=== PATIENT | male | born 1945 | race Two or more races ===

== ENCOUNTER 2023-09-07 15:21 | Inpatient (IN) | payer MEDICARE, OTHER ==
[~2023-09-07] VITALS: Ht 167.6 cm; Wt 98.1 kg
[2023-09-07] MEDS ORDERED: VANCOMYCIN IV 200 ML ONE (16:03)
[2023-09-07] MEDS ORDERED: CEFTRIAXONE /D5W 50ML IVPB **ER PYXIS IV ONE (16:03)
[2023-09-07] MEDS ORDERED: DEXAMETHASONE SOD PHOSPHATE 10 MG INJ ONE ×2 (16:04→16:07)
[2023-09-07] MEDS ORDERED: AZITHROMYCIN 250 MG TABLET ONE (16:04)
[2023-09-07 16:15] LABS: EOSINOPHILS # (AUTO) 0.1 K/uL (0.0-0.7); MEAN CORPUSCULAR VOLUME 77.1 fL (73.0-96.2); RED CELL DISTRIBUTION WIDTH 14.6 % (12.1-16.2)
[2023-09-07 16:22] LABS: BASOPHILS # (AUTO) 0.1 K/UL (0.0-0.2); BASOPHILS % (AUTO) 0.6 % (0.0-2.0); DIFFERENTIAL COMMENT 0; EOSINOPHILS % (AUTO) 0.6 % (0.0-7.0); HEMATOCRIT 38.7 % (36.7-47.1); HEMOGLOBIN 12.7 g/dL (12.5-16.3); LYMPHOCYTES # (AUTO) 2.4 K/uL (0.8-4.8); LYMPHOCYTES % (AUTO) 19.4 % (20.5-51.5); MEAN CORPUSCULAR HEMOGLOBIN 25.4 uug (23.8-33.4); MEAN CORPUSCULAR HGB CONC 33 g/dL (32.5-36.3); MONOCYTES # (AUTO) 1.3 K/uL (0.1-1.30); MONOCYTES % (AUTO) 10.3 % (0.0-11.0); NEUTROPHILS # (AUTO) 8.5 K/uL (1.8-8.9); NEUTROPHILS % (AUTO) 69.1 % (38.5-71.5); PLATELET COUNT (AUTO) 207 K/uL (152-348); RED BLOOD CELL COUNT(AUTO) 5.02 MIL/uL (4.06-5.63); WHITE BLOOD COUNT (AUTO) 12.3 K/uL (3.6-10.2)
[2023-09-07] MEDS: IV NORMAL SALINE 1000 ML BAG IV ONE (16:28)
[2023-09-07] MEDS: CEFTRIAXONE 1 G in IV DEXTROSE 5% 50 ML IV ONE (16:28)
[2023-09-07] MEDS: VANCOMYCIN IV 1,000 MG in IV DEXTROSE 5% 250 ML IV ONE (16:28)
[2023-09-07] MEDS: DEXAMETHASONE SOD PHOSPHATE 4 MG INJ IV ONE (16:28)
[2023-09-07] MEDS: AZITHROMYCIN 250 MG TABLET PO ONE (16:28)
[2023-09-07 16:30] LABS: CALCIUM 9.6 mg/dL (8.5-10.1); CARBON DIOXIDE 33 mmol/L (21-32); CHLORIDE 102 mmol/L (98-107); CREATININE 1.6 mg/dL (0.6-1.3); GLUCOSE 107 mg/dL (74-106); POTASSIUM 4.4 mmol/L (3.5-5.1); SODIUM SERUM 141 mmol/L (136-145); UREA NITROGEN, BLOOD 34 mg/dL (7-18)
[2023-09-07 16:43] LABS: ALANINE AMINOTRANSFERASE 22 U/L (16-63); ALBUMIN 2.8 g/dL (3.4-5.0); ALKALINE PHOSPHATASE 97 U/L (50-136); ASPARTATE AMINOTRANSFERASE 17 U/L (15-37); BILIRUBIN,DIRECT 0.1 mg/dL (0.0-0.2); BILIRUBIN,TOTAL 0.3 mg/dL (0.2-1.0); NT-PRO BNP 463 pg/mL (0-125); TOTAL PROTEIN, SERUM 7.1 g/dL (6.4-8.2)
[2023-09-07 17:19] LABS: SITE, VBG RIGHT BRACHIAL; VBG AaDO2 96.3 mmHg; VBG BASE EXCESS 3.1 mmol/L (-3-3); VBG HCO3 30.1 mmol/L (22-27); VBG MetHb 0.3 % (0.0-0.5); VBG O2HB 95.2 %; VBG PCO2 56.4 mmHg (41.0-54.0); VBG PH 7.345 (7.310-7.450); VBG PO2 90.3 mmHg (25.0-35.0); VBG TOTAL HEMOGLOBIN 13.4 G/dL (12.0-16.0)
[2023-09-07] MEDS ORDERED: FOLI1TAB27 PO (17:37)
[2023-09-07] MEDS ORDERED: CINA30TA2 PO (17:37)
[2023-09-07] MEDS ORDERED: ALLO100T PO (17:37)
[2023-09-07] MEDS ORDERED: ERGO500040 PO (17:37)
[2023-09-07] MEDS ORDERED: MULT-1119 PO (17:37)
[2023-09-07] MEDS ORDERED: TADA20TA31 PO (17:37)
[2023-09-07] MEDS ORDERED: MAGN200T5 PO (17:37)
[2023-09-07] MEDS ORDERED: AMIO100T4 PO (17:37)
[2023-09-07] MEDS ORDERED: LABE100T5 PO (17:37)
[2023-09-07] MEDS ORDERED: LANS30CA56 PO (17:37)
[2023-09-07] MEDS ORDERED: ESOM40CA PO (17:37)
[2023-09-07] MEDS ORDERED: MYCO250C PO (17:37)
[2023-09-07] MEDS ORDERED: TAMS-3 PO (17:37)
[2023-09-07] MEDS ORDERED: PRED1TAB PO (17:37)
[2023-09-07] MEDS ORDERED: ACET250T3 PO (17:37)
[2023-09-07] MEDS ORDERED: TACR1CAP2 PO (17:37)
[2023-09-07] MEDS ORDERED: SERT20OR6 PO (17:37)
[2023-09-07] MEDS ORDERED: CALC0.253 PO (17:37)
[2023-09-07] MEDS ORDERED: SERT25TA PO (17:39)
[2023-09-07 20:04] LABS: *BILIRUBIN,URIN NEGATIVE (NEGATIVE); *CLARITY,URINE CLEAR (CLEAR); *COLOR,URINE YELLOW (YELLOW); *KETONES,URINE NEGATIVE (NEGATIVE); *PROTEIN,URINE NEGATIVE (NEGATIVE); *UROBILINOGEN,URINE 0.2 E.U./dl (NORMAL); LEUKOCYTE ESTERASE ,URINE NEGATIVE (NEGATIVE); NITRITE, URINE NEGATIVE (NEGATIVE); PH,URINE 5.5 (5.0-8.0); UGLUCOSE NEGATIVE (NEGATIVE)
[2023-09-07 20:12] LABS: *BLOOD, URINE TRACE (NEGATIVE)
[2023-09-07 20:21] LABS: BACTERIA,URINE NONE SEEN /HPF (NONE SEEN); RBC,URINE 0-3 /HPF (0-3); SQUAMOUS EPITHELIAL CELL,UR NONE SEEN /HPF (NONE SEEN); WBC,URINE NONE SEEN /HPF (0-3)
[2023-09-07 21:55] VITALS: BP 135/62; TEMP 97.8; O2SAT 94
[2023-09-07] MEDS ORDERED: DEXTROSE 50% 50 ML DISP.SYRIN IV PRN (23:00)
[2023-09-07] MEDS ORDERED: MAGNESIUM HYDROXIDE 30 ML LIQUID UDC PO PRN (23:00)
[2023-09-07] MEDS ORDERED: IPRATROPIUM BROMIDE 0.5 MG/2.5 ML NEBU NEB PRN (23:00)
[2023-09-07] MEDS: MYCOPHENOLATE MOFETIL 250 MG CAPSULE PO SCH (23:00)
[2023-09-07] MEDS ORDERED: ONDANSETRON 4 MG/2 ML VIAL IV PRN (23:00)
[2023-09-07] MEDS ORDERED: REMEDY ESSENTIAL ZINC PASTE 113 GM TP PRN (23:00)
[2023-09-07] MEDS ORDERED: ALBUTEROL SULFATE 2.5 MG/ 0.5 ML NEBU NEB PRN (23:00)
[2023-09-07] MEDS ORDERED: ACETAMINOPHEN 325 MG TABLET PO PRN (23:00)
[2023-09-07] MEDS: INSULIN GLARGINE,HUM 300 UNITS/3 ML CARTRIDGE SQ SCH (23:22)
[2023-09-07] MEDS: IV NS 1000 ML 1,000 ML IV ONE (23:24)
[2023-09-08] VITALS (14 sets, daily range): BP systolic 126–150; BP diastolic 37–72; TEMP 97.8–98.3; O2SAT 92–100
[2023-09-08] MEDS: BLOOD SUGAR DIAGNOSTIC 1 EACH STRIP VI SCH (06:33)
[2023-09-08 06:48] LABS: HEMATOCRIT 34.7 % (36.7-47.1); HEMOGLOBIN 11.3 g/dL (12.5-16.3); LYMPHOCYTES # (AUTO) 0.5 K/uL (0.8-4.8); MEAN CORPUSCULAR HEMOGLOBIN 25.1 uug (23.8-33.4); MEAN CORPUSCULAR HGB CONC 33 g/dL (32.5-36.3); MONOCYTES # (AUTO) 0.3 K/uL (0.1-1.30); MONOCYTES % (AUTO) 4.3 % (0.0-11.0); NEUTROPHILS # (AUTO) 5.4 K/uL (1.8-8.9); NEUTROPHILS % (AUTO) 87.7 % (38.5-71.5); PLATELET COUNT (AUTO) 187 K/uL (152-348); RED BLOOD CELL COUNT(AUTO) 4.51 MIL/uL (4.06-5.63); RED CELL DISTRIBUTION WIDTH 14.6 % (12.1-16.2); WHITE BLOOD COUNT (AUTO) 6.2 K/uL (3.6-10.2)
[2023-09-08 06:59] LABS: DIFFERENTIAL COMMENT 1
[2023-09-08 07:02] LABS: CALCIUM 7.5 mg/dL (8.5-10.1); CARBON DIOXIDE 26 mmol/L (21-32); CHLORIDE 110 mmol/L (98-107); CHOLESTEROL 108 mg/dL (<200); CREATININE 1.3 mg/dL (0.6-1.3); GLUCOSE 152 mg/dL (74-106); HDL CHOLESTEROL 38 mg/dL (40-60); MAGNESIUM 1.5 mg/dL (1.8-2.4); PHOSPHOROUS 3.1 mg/dL (2.5-4.9); POTASSIUM 4.4 mmol/L (3.5-5.1); SODIUM SERUM 144 mmol/L (136-145); TRIGLYCERIDES 71 MG/DL (30-150); UREA NITROGEN, BLOOD 31 mg/dL (7-18)
[2023-09-08 07:17] LABS: THYROID STIMULATING HORMONE 0.101 mIU/mL (0.358-3.740)
[2023-09-08] MEDS: IPRATROPIUM BROMIDE 0.5 MG/2.5 ML NEBU NEB SCH (08:55)
[2023-09-08] MEDS: ALBUTEROL SULFATE 2.5 MG/ 0.5 ML NEBU NEB SCH (08:55)
[2023-09-08] MEDS ORDERED: TADALAFIL 20 MG PO SCH (09:00)
[2023-09-08] MEDS ORDERED: MAGNESIUM OXIDE 400 MG TABLET PO SCH ×2 (09:00)
[2023-09-08] MEDS ORDERED: predniSONE 5 MG TABLET PO SCH (09:00)
[2023-09-08] MEDS ORDERED: SERTRALINE HCL 50 MG TABLET PO SCH (09:00)
[2023-09-08] MEDS ORDERED: TACROLIMUS ANHYDROUS 0.5 MG CAPSULE PO SCH (09:00)
[2023-09-08] MEDS ORDERED: CINACALCET HCL 30 MG TABLET PO SCH (09:00)
[2023-09-08] MEDS ORDERED: predniSONE 1 MG TABLET PO SCH (09:00)
[2023-09-08] MEDS: ENOXAPARIN SODIUM 30 MG/0.3 ML DISP.SYRIN SQ SCH (09:00)
[2023-09-08] MEDS: MULTIVITAMINS,THERAPEUTIC TABLET PO SCH (09:37)
[2023-09-08] MEDS: LABETALOL HCL 100 MG TABLET PO SCH (09:37)
[2023-09-08] MEDS: FOLIC ACID 1 MG TABLET PO SCH (09:37)
[2023-09-08] MEDS: AMIODARONE HCL 200 MG TABLET PO SCH (09:37)
[2023-09-08] MEDS: MYCOPHENOLATE MOFETIL 250 MG CAPSULE PO SCH ×2 (10:25→20:16)
[2023-09-08] MEDS: PANTOPRAZOLE SODIUM 40 MG TABLET.DR PO SCH (10:25)
[2023-09-08] MEDS: predniSONE 5 MG TABLET PO SCH (10:25)
[2023-09-08] MEDS: TACROLIMUS ANHYDROUS 0.5 MG CAPSULE PO SCH ×2 (10:29→20:16)
[2023-09-08] MEDS: CALCITRIOL 0.25 MCG CAPSULE PO SCH (10:34)
[2023-09-08] MEDS: MAGNESIUM OXIDE 400 MG TABLET PO ONE (12:07)
[2023-09-08] MEDS: INSULIN REGULAR, HUMAN 300 UNIT/3 ML VIAL SQ PRN (12:08)
[2023-09-08] MEDS ORDERED: AZITHROMYCIN IV 500 MG in IV DEXTROSE 5% 250 ML IV SCH ×2 (15:00→21:00)
[2023-09-08] MEDS: DOXYCYCLINE HYCLATE IV 100 MG in IV DEXTROSE 5% 100 ML IV SCH (15:12)
[2023-09-08] MEDS: CEFTRIAXONE 1 G in IV DEXTROSE 5% 50 ML IV SCH (16:41)
[2023-09-08] MEDS: TAMSULOSIN HCL 0.4 MG CAP.SR.24H PO SCH (20:16)
[2023-09-08] MEDS: CINACALCET HCL 30 MG TABLET PO SCH (20:16)
[2023-09-08] MEDS: INSULIN GLARGINE,HUM 300 UNITS/3 ML CARTRIDGE SQ SCH (20:29)
[2023-09-08] MEDS ORDERED: CEFTRIAXONE 1 G in IV DEXTROSE 5% 50 ML IV SCH (21:00)
[2023-09-09] VITALS (14 sets, daily range): BP systolic 125–160; BP diastolic 54–76; TEMP 97.3–98.6; O2SAT 89–100
[2023-09-09 07:05] LABS: CARBON DIOXIDE 27 mmol/L (21-32); CHLORIDE 105 mmol/L (98-107); CREATININE 1.6 mg/dL (0.6-1.3); GLUCOSE 111 mg/dL (74-106); MAGNESIUM 1.9 mg/dL (1.8-2.4); PHOSPHOROUS 3.5 mg/dL (2.5-4.9); SODIUM SERUM 143 mmol/L (136-145); UREA NITROGEN, BLOOD 36 mg/dL (7-18)
[2023-09-09 07:09] LABS: BASOPHILS % (AUTO) 0.2 % (0.0-2.0); DIFFERENTIAL COMMENT 0; EOSINOPHILS % (AUTO) 0.4 % (0.0-7.0); HEMATOCRIT 40.8 % (36.7-47.1); HEMOGLOBIN 13.2 g/dL (12.5-16.3); LYMPHOCYTES # (AUTO) 1.5 K/uL (0.8-4.8); LYMPHOCYTES % (AUTO) 18.4 % (20.5-51.5); MEAN CORPUSCULAR HEMOGLOBIN 24.8 uug (23.8-33.4); MEAN CORPUSCULAR HGB CONC 32 g/dL (32.5-36.3); MEAN CORPUSCULAR VOLUME 76.8 fL (73.0-96.2); MONOCYTES # (AUTO) 0.7 K/uL (0.1-1.30); MONOCYTES % (AUTO) 8.4 % (0.0-11.0); NEUTROPHILS # (AUTO) 5.8 K/uL (1.8-8.9); NEUTROPHILS % (AUTO) 72.6 % (38.5-71.5); PLATELET COUNT (AUTO) 247 K/uL (152-348); RED BLOOD CELL COUNT(AUTO) 5.31 MIL/uL (4.06-5.63); RED CELL DISTRIBUTION WIDTH 14.7 % (12.1-16.2); WHITE BLOOD COUNT (AUTO) 7.9 K/uL (3.6-10.2)
[2023-09-09 07:14] LABS: THYROID STIMULATING HORMONE 0.701 mIU/mL (0.358-3.740)
[2023-09-09] MEDS: FUROSEMIDE 20 MG/2 ML VIAL IV SCH (09:41)
[2023-09-10] VITALS (12 sets, daily range): BP systolic 122–143; BP diastolic 58–72; TEMP 97.3–98.6; O2SAT 94–99
[2023-09-10] MEDS ORDERED: CEFEPIME HCL 1 G VIAL ONE (05:18)
[2023-09-10] MEDS: CEFEPIME HCL 1 G in IV DEXTROSE 5% 50 ML IV SCH (05:44)
[2023-09-10 07:43] LABS: BASOPHILS % (AUTO) 0.5 % (0.0-2.0); EOSINOPHILS % (AUTO) 0.6 % (0.0-7.0); HEMATOCRIT 41.8 % (36.7-47.1); HEMOGLOBIN 13.7 g/dL (12.5-16.3); LYMPHOCYTES # (AUTO) 1.5 K/uL (0.8-4.8); LYMPHOCYTES % (AUTO) 19.5 % (20.5-51.5); MEAN CORPUSCULAR HGB CONC 33 g/dL (32.5-36.3); MEAN CORPUSCULAR VOLUME 76.6 fL (73.0-96.2); MONOCYTES # (AUTO) 0.6 K/uL (0.1-1.30); MONOCYTES % (AUTO) 7.8 % (0.0-11.0); NEUTROPHILS # (AUTO) 5.6 K/uL (1.8-8.9); NEUTROPHILS % (AUTO) 71.6 % (38.5-71.5); PLATELET COUNT (AUTO) 230 K/uL (152-348); RED BLOOD CELL COUNT(AUTO) 5.46 MIL/uL (4.06-5.63); RED CELL DISTRIBUTION WIDTH 14.5 % (12.1-16.2); WHITE BLOOD COUNT (AUTO) 7.8 K/uL (3.6-10.2)
[2023-09-10 08:00] LABS: DIFFERENTIAL COMMENT 1
[2023-09-10 08:09] LABS: C-REACTIVE PROTEIN 8.86 mg/dL (0.00-0.30); CALCIUM 9.1 mg/dL (8.5-10.1); CARBON DIOXIDE 33 mmol/L (21-32); CHLORIDE 105 mmol/L (98-107); CREATININE 1.6 mg/dL (0.6-1.3); GLUCOSE 113 mg/dL (74-106); MAGNESIUM 1.6 mg/dL (1.8-2.4); POTASSIUM 4.4 mmol/L (3.5-5.1); SODIUM SERUM 145 mmol/L (136-145); UREA NITROGEN, BLOOD 37 mg/dL (7-18)
[2023-09-10 08:28] LABS: PHOSPHOROUS 4.7 mg/dL (2.5-4.9)
[2023-09-10] MEDS: CEFEPIME HCL 1 G in IV DEXTROSE 5% 50 ML IV ONE (09:57)
[2023-09-10] MEDS: MAGNESIUM OXIDE 400 MG TABLET PO ONE (11:44)
[2023-09-10] MEDS ORDERED: CEFEPIME HCL 1 G in IV DEXTROSE 5% 50 ML IV SCH (18:00)
[2023-09-10] MEDS: ZOLPIDEM 5 MG TABLET PO PRN (20:43)
[2023-09-11] VITALS (9 sets, daily range): BP systolic 115–157; BP diastolic 69–78; TEMP 97.4–97.8; O2SAT 92–99
[2023-09-11] MEDS: CEFEPIME HCL 2 GM in IV DEXTROSE 5% 100 ML IV SCH (04:48)
[2023-09-11 06:35] LABS: BASOPHILS % (AUTO) 0.4 % (0.0-2.0); EOSINOPHILS # (AUTO) 0.1 K/uL (0.0-0.7); EOSINOPHILS % (AUTO) 0.8 % (0.0-7.0); HEMOGLOBIN 13.2 g/dL (12.5-16.3); LYMPHOCYTES # (AUTO) 1.5 K/uL (0.8-4.8); MEAN CORPUSCULAR HGB CONC 33 g/dL (32.5-36.3); MEAN CORPUSCULAR VOLUME 75.8 fL (73.0-96.2); MONOCYTES # (AUTO) 0.7 K/uL (0.1-1.30); MONOCYTES % (AUTO) 8.6 % (0.0-11.0); NEUTROPHILS # (AUTO) 5.5 K/uL (1.8-8.9); NEUTROPHILS % (AUTO) 71.2 % (38.5-71.5); PLATELET COUNT (AUTO) 220 K/uL (152-348); RED BLOOD CELL COUNT(AUTO) 5.28 MIL/uL (4.06-5.63); RED CELL DISTRIBUTION WIDTH 14.6 % (12.1-16.2); WHITE BLOOD COUNT (AUTO) 7.6 K/uL (3.6-10.2)
[2023-09-11 06:52] LABS: ALANINE AMINOTRANSFERASE 17 U/L (16-63); ALBUMIN 2.8 g/dL (3.4-5.0); ALKALINE PHOSPHATASE 86 U/L (50-136); ASPARTATE AMINOTRANSFERASE 9 U/L (15-37); BILIRUBIN,TOTAL 0.5 mg/dL (0.2-1.0); CALCIUM 8.7 mg/dL (8.5-10.1); CARBON DIOXIDE 35 mmol/L (21-32); CHLORIDE 100 mmol/L (98-107); CREATININE 1.6 mg/dL (0.6-1.3); GLUCOSE 111 mg/dL (74-106); MAGNESIUM 1.5 mg/dL (1.8-2.4); PHOSPHOROUS 3.8 mg/dL (2.5-4.9); POTASSIUM 3.6 mmol/L (3.5-5.1); SODIUM SERUM 141 mmol/L (136-145); TOTAL PROTEIN, SERUM 7.1 g/dL (6.4-8.2); UREA NITROGEN, BLOOD 35 mg/dL (7-18)
[2023-09-11 07:00] LABS: DIFFERENTIAL COMMENT 1
[2023-09-11] MEDS: MAGNESIUM OXIDE 400 MG TABLET PO ONE (11:31)
[2023-09-11] MEDS ORDERED: ACID1TAB4 PO (15:48)
[2023-09-11] MEDS ORDERED: AMOX-427 PO (15:48)
[2023-09-11] MEDS ORDERED: DOXY100C5 PO (15:48)
[2023-09-11 16:07] LABS: *BILIRUBIN,URIN NEGATIVE (NEGATIVE); *BLOOD, URINE NEGATIVE (NEGATIVE); *CLARITY,URINE CLEAR (CLEAR); *COLOR,URINE YELLOW (YELLOW); *KETONES,URINE NEGATIVE (NEGATIVE); *PROTEIN,URINE NEGATIVE (NEGATIVE); *UROBILINOGEN,URINE 0.2 E.U./dl (NORMAL); LEUKOCYTE ESTERASE ,URINE NEGATIVE (NEGATIVE); NITRITE, URINE NEGATIVE (NEGATIVE); PH,URINE 6.5 (5.0-8.0); UGLUCOSE NEGATIVE (NEGATIVE)
[2023-09-11 16:11] LABS: *CREATININE,URINE 96.4 mg/dL (30-125); *URINE TOTAL PROTEIN RANDOM 28.2 mg/dL (<150/24HR)
[2023-09-11 20:06] LABS: ADENOVIRUS Not Detected (Not Detected); CORONAVIRUS 229E Not Detected (Not Detected); CORONAVIRUS HKU1 Not Detected (Not Detected); CORONAVIRUS NL63 Not Detected (Not Detected); CORONAVIRUS OC43 Not Detected (Not Detected); NP BORDETELLA PERTUSIS Not Detected (Not Detected); NP CHLAMYDOPHILA PNEUMONIAE Not Detected (Not Detected); NP HUMAN METAPNEUMOVIRUS Not Detected (Not Detected); NP HUMAN RHINO/ENTERO VIRUS Not Detected (Not Detected); NP INFLUENZA A Not Detected (Not Detected); NP INFLUENZA A/H1 Not Detected (Not Detected); NP INFLUENZA A/H1-2009 Not Detected (Not Detected); NP INFLUENZA A/H3 Not Detected (Not Detected); NP INFLUENZA B Not Detected (Not Detected); NP MYCOPLASMA PNEUMONIAE Not Detected (Not Detected); NP PARAINFLUENZA 1 Not Detected (Not Detected); NP PARAINFLUENZA 2 Not Detected (Not Detected); NP PARAINFLUENZA 3 Not Detected (Not Detected); NP PARAINFLUENZA 4 Not Detected (Not Detected); NP RESPIRATORY SYNCYTIAL VIRUS Not Detected (Not Detected)
== END 2023-09-11 16:55 | disposition home or self-care (01) | DRG 177 ==
LOC: ER 15:24 → TELE3 21:37 → MEDSURG3 09-08 15:21
PROVIDERS: ADMIT Nurse Practitioner Acute Care; ATTEND Internal Medicine
DX: J15.69 Pneumonia due to other Gram-negative bacteria (principal); J96.21 Acute and chronic respiratory failure with hypoxia; N17.0 Acute kidney failure with tubular necrosis; J96.22 Acute and chronic respiratory failure with hypercapnia; T86.12 Kidney transplant failure; J44.0 Chronic obstructive pulmonary disease with (acute) lower respiratory infection; D84.821 Immunodeficiency due to drugs; I12.0 Hypertensive chronic kidney disease with stage 5 chronic kidney disease or end stage renal disease; E66.9 Obesity, unspecified; K21.9 Gastro-esophageal reflux disease without esophagitis; M10.9 Gout, unspecified; E11.22 Type 2 diabetes mellitus with diabetic chronic kidney disease; N18.9 Chronic kidney disease, unspecified; N40.0 Benign prostatic hyperplasia without lower urinary tract symptoms; I48.0 Paroxysmal atrial fibrillation; I45.9 Conduction disorder, unspecified; I25.10 Atherosclerotic heart disease of native coronary artery without angina pectoris; E78.5 Hyperlipidemia, unspecified; Z68.34 Body mass index [BMI] 34.0-34.9, adult; Z90.49 Acquired absence of other specified parts of digestive tract; Z87.891 Personal history of nicotine dependence; Z87.448 Personal history of other diseases of urinary system; Z87.01 Personal history of pneumonia (recurrent); Z79.624 Long term (current) use of inhibitors of nucleotide synthesis
CPT/HCPCS: 36415; 36600; 71045; 71250; 76770; 83605; 83735; 84100; 84300; 84443; 84484; 85025; 85730; 86140; 87040; 87077; 93005; 94640; 94664; 94760; A4606; A4663; G0378; J0692; J0696; J1100; J1650; J1815; J1940; J3370; J3490; J3590; J7040; J7507; J7512; J7517; Q0144

== ENCOUNTER 2025-01-10 21:03 | Inpatient (IN) | payer MEDICARE, OTHER ==
[~2025-01-10] VITALS: Ht 177.8 cm; Wt 105.7 kg
[~2025-01-10 21:03] MED LIST: ACET250T3 PO; ACID1TAB4 PO; ALLO100T PO; AMIO100T4 PO; AMOX-427 PO; CALC0.253 PO; CINA30TA2 PO; DOXY100C5 PO; FOLI1TAB27 PO; LABE100T5 PO; LANS30CA56 PO; MAGN200T5 PO; MULT-1119 PO; MYCO250C PO; PRED1TAB PO; SERT25TA PO; TACR1CAP2 PO; TADA20TA31 PO; TAMS-3 PO
[2025-01-10 21:36] LABS: PLATELET COUNT (AUTO) 122 K/uL (152-348); RED BLOOD CELL COUNT(AUTO) 5.35 MIL/uL (4.06-5.63); RED CELL DISTRIBUTION WIDTH 15.7 % (12.1-16.2); WHITE BLOOD COUNT (AUTO) 5.1 K/uL (3.6-10.2)
[2025-01-10 21:46] LABS: CREATININE 1.4 mg/dL (0.6-1.3); SODIUM SERUM 146 mmol/L (136-145); UREA NITROGEN, BLOOD 38 mg/dL (7-18)
[2025-01-10 21:51] LABS: ASPARTATE AMINOTRANSFERASE 9 U/L (15-37); TOTAL PROTEIN, SERUM 6.8 g/dL (6.4-8.2)
[2025-01-10] MEDS ORDERED: INSU100V7 SQ (22:14)
[2025-01-10] MEDS ORDERED: INSU100C4 SUBCUT (22:14)
[2025-01-10] MEDS ORDERED: FURO40TA5 PO (22:14)
[2025-01-10] MEDS ORDERED: ASCO500C18 PO (22:14)
[2025-01-10] MEDS ORDERED: ESOM40CA PO (22:14)
[2025-01-10] MEDS ORDERED: ERGO500040 PO (22:14)
[2025-01-10] MEDS ORDERED: APIX5TAB PO (22:14)
[2025-01-10] MEDS ORDERED: ACETAMINOPHEN 325 MG TABLET PO PRN (22:30)
[2025-01-10] MEDS ORDERED: MAGNESIUM HYDROXIDE 30 ML LIQUID UDC PO PRN (22:30)
[2025-01-10] MEDS ORDERED: ONDANSETRON 4 MG/2 ML VIAL IV PRN (22:30)
[2025-01-10] MEDS ORDERED: REMEDY ESSENTIAL ZINC PASTE 113 GM TP PRN (22:30)
[2025-01-10 23:00] VITALS: BP 151/72
[2025-01-10 23:52] VITALS: BP 168/78; TEMP 98; O2SAT 99
[2025-01-11 05:56] VITALS: BP 144/74; TEMP 97.8; O2SAT 98
[2025-01-11] MEDS: PANTOPRAZOLE SODIUM 40 MG TABLET.DR PO SCH (06:24)
[2025-01-11 07:11] LABS: PLATELET COUNT (AUTO) 129 K/uL (152-348); RED BLOOD CELL COUNT(AUTO) 5.35 MIL/uL (4.06-5.63); RED CELL DISTRIBUTION WIDTH 15.2 % (12.1-16.2); WHITE BLOOD COUNT (AUTO) 6.4 K/uL (3.6-10.2)
[2025-01-11 07:29] VITALS: BP 117/63; TEMP 97.7; O2SAT 97
[2025-01-11 07:40] LABS: CREATININE 1.2 mg/dL (0.6-1.3); SODIUM SERUM 147 mmol/L (136-145); UREA NITROGEN, BLOOD 38 mg/dL (7-18)
[2025-01-11] MEDS: FUROSEMIDE 20 MG/2 ML VIAL IV SCH (09:03)
[2025-01-11 10:58] VITALS: BP 139/60; TEMP 97.8; O2SAT 95
[2025-01-11] MEDS ORDERED: TACR0.5C4 PO (15:15)
[2025-01-11] MEDS ORDERED: PRED-170 PO (15:15)
[2025-01-11 15:37] VITALS: BP 137/66; TEMP 97.8; O2SAT 97
[2025-01-11 19:39] VITALS: BP 129/54; TEMP 98.2; O2SAT 97
[2025-01-11 23:47] VITALS: BP 130/66; TEMP 98.1; O2SAT 95
[2025-01-12 05:51] VITALS: BP 120/63; TEMP 97.9; O2SAT 95
[2025-01-12 07:07] LABS: PLATELET COUNT (AUTO) 123 K/uL (152-348); RED BLOOD CELL COUNT(AUTO) 5.17 MIL/uL (4.06-5.63); RED CELL DISTRIBUTION WIDTH 15.1 % (12.1-16.2); WHITE BLOOD COUNT (AUTO) 6.4 K/uL (3.6-10.2)
[2025-01-12 07:19] LABS: CREATININE 1.4 mg/dL (0.6-1.3); SODIUM SERUM 147 mmol/L (136-145); UREA NITROGEN, BLOOD 43 mg/dL (7-18)
[2025-01-12 07:37] VITALS: BP 136/70; TEMP 98; O2SAT 96
[2025-01-12] MEDS ORDERED: FUROSEMIDE 40 MG TABLET PO PRN (08:30)
[2025-01-12] MEDS ORDERED: DEXTROSE 50% 50 ML DISP.SYRIN IV PRN ×2 (08:30)
[2025-01-12] MEDS ORDERED: INSULIN REGULAR, HUMAN 1000 UNIT/10 ML VIAL SQ PRN ×2 (08:30)
[2025-01-12] MEDS ORDERED: INSULIN REGULAR, HUMAN 300 UNITS/3 ML VIAL SQ PRN ×2 (08:30)
[2025-01-12] MEDS ORDERED: Medication Not On Formulary EA (Sertraline Hcl (Zoloft) 100 MG) PO SCH (09:00)
[2025-01-12] MEDS ORDERED: AMIODARONE HCL 200 MG TABLET PO SCH ×2 (09:00→09:10)
[2025-01-12] MEDS ORDERED: ALLOPURINOL 100 MG TABLET PO SCH (09:00)
[2025-01-12] MEDS ORDERED: MAGNESIUM OXIDE 400 MG TABLET PO ONE (09:00)
[2025-01-12] MEDS ORDERED: MAGNESIUM OXIDE 400 MG TABLET PO SCH (09:12)
[2025-01-12] MEDS: SERTRALINE HCL 100 MG TABLET PO SCH (10:00)
[2025-01-12] MEDS: APIXABAN 5 MG TABLET PO SCH (10:00)
[2025-01-12] MEDS: TAMSULOSIN HCL 0.4 MG CAP.SR.24H PO SCH (10:00)
[2025-01-12] MEDS: MULTIVITAMINS,THERAPEUTIC TABLET PO SCH (10:00)
[2025-01-12] MEDS: CINACALCET HCL 30 MG TABLET PO SCH (10:00)
[2025-01-12] MEDS: ERGOCALCIFEROL 50,000 UNIT CAPSULE PO SCH (10:00)
[2025-01-12] MEDS: FOLIC ACID 1 MG TABLET PO SCH (10:00)
[2025-01-12] MEDS: MYCOPHENOLATE MOFETIL 250 MG CAPSULE PO SCH (10:00)
[2025-01-12] MEDS: LABETALOL HCL 100 MG TABLET PO SCH (10:00)
[2025-01-12] MEDS: TACROLIMUS ANHYDROUS 0.5 MG CAPSULE PO SCH (10:00)
[2025-01-12 11:12] VITALS: BP 144/67; TEMP 98.2; O2SAT 97
[2025-01-12] MEDS ORDERED: BLOOD SUGAR DIAGNOSTIC 1 EACH STRIP VI SCH (11:30)
[2025-01-12] MEDS: BLOOD SUGAR DIAGNOSTIC 1 EACH STRIP VI SCH (11:46)
[2025-01-12] MEDS ORDERED: AMOX-430 PO (13:41)
[2025-01-12] MEDS ORDERED: FURO40TA5 PO (13:41)
[2025-01-13] MEDS ORDERED: ASCORBIC ACID 500 MG TABLET PO SCH (09:00)
== END 2025-01-12 14:20 | disposition home health service (06) | DRG 205 ==
LOC: ER 21:13 → TELE3 22:18
PROVIDERS: ADMIT Student in an Organized Health Care Education/Training Program; ATTEND Student in an Organized Health Care Education/Training Program
DX: J98.11 Atelectasis (principal); I50.33 Acute on chronic diastolic (congestive) heart failure; J96.01 Acute respiratory failure with hypoxia; N17.0 Acute kidney failure with tubular necrosis; I13.0 Hypertensive heart and chronic kidney disease with heart failure and stage 1 through stage 4 chronic kidney disease, or unspecified chronic kidney disease; E44.1 Mild protein-calorie malnutrition; Z94.0 Kidney transplant status; T86.19 Other complication of kidney transplant; E87.0 Hyperosmolality and hypernatremia; J44.0 Chronic obstructive pulmonary disease with (acute) lower respiratory infection; I48.0 Paroxysmal atrial fibrillation; E11.22 Type 2 diabetes mellitus with diabetic chronic kidney disease; N18.9 Chronic kidney disease, unspecified; E21.2 Other hyperparathyroidism; K21.9 Gastro-esophageal reflux disease without esophagitis; M10.9 Gout, unspecified; J40 Bronchitis, not specified as acute or chronic; E78.5 Hyperlipidemia, unspecified; Z79.621 Long term (current) use of calcineurin inhibitor; Z79.4 Long term (current) use of insulin; Z79.84 Long term (current) use of oral hypoglycemic drugs; Z79.01 Long term (current) use of anticoagulants; Z79.899 Other long term (current) drug therapy; Z79.52 Long term (current) use of systemic steroids; E66.9 Obesity, unspecified; Z68.33 Body mass index [BMI] 33.0-33.9, adult; Z79.624 Long term (current) use of inhibitors of nucleotide synthesis; Z87.891 Personal history of nicotine dependence
CPT/HCPCS: 36415; 71045; 71250; 83735; 84100; 84484; 85025; 87040; 93005; 93307; A4606; A4663; G0378; J1815; J1938; J1956; J7050; J7517